=== PATIENT | female | born 1990 | race African-American/Black ===

== ENCOUNTER 2018-05-04 23:08 | Observation (INO) | payer SELFPAY ==
[~2018-05-04] VITALS: Ht 165.1 cm; Wt 83.9 kg
[2018-05-04] MEDS ORDERED: PREN1TAB78 MT (23:45)
== END 2018-05-04 23:55 | disposition home or self-care (01) ==
LOC: L&D 23:08
PROVIDERS: ADMIT Specialist; ATTEND Specialist
DX: O26.893 Other specified pregnancy related conditions, third trimester (principal); R10.9 Unspecified abdominal pain; Z3A.29 29 weeks gestation of pregnancy
CPT/HCPCS: 99281; G0378